=== PATIENT | male | born 1940 | race Caucasian/White ===

== ENCOUNTER 2019-10-01 05:40 | Day surgery (SDC) | payer MEDICARE, BC ==
[~2019-10-01] VITALS: Ht 180.3 cm; Wt 85.3 kg
[~2019-10-01 05:40] MED LIST: ASPIRIN EC81 M1 PO; FEXOFENADINE H180 MG PO; NORVASC5 MG PO; PRAVACHOL40 MG PO; PROAIR HFA8.5 G1 INH
[2019-10-01 06:17] LABS: HEMATOCRIT 43.6 % (42.0-54.0); HEMOGLOBIN 14.9 g/dL (13.5-17.5); MCH 31.2 pg (26.0-34.0); MCHC 34.2 g/dL (31.0-37.0); MCV 91.4 fL (80.0-100.0); MEAN PLATELET VOLUME 10.5 fL (7.4-10.4); RBC 4.77 10x6/uL (4.20-6.10); RDW 13.8 % (11.5-14.5); WBC 7.3 10x3/uL (4.8-10.8)
[2019-10-01 07:18] VITALS: Ht 180.3 cm; Wt 85.3 kg
--- NOTE | 2019-10-01 15:20 | OP ---
PATIENT NAME: TRENT CASTRO MEDICAL RECORD: [id number] LOCATION:[facility] ADMISSION DATE: SURGEON: ISAEL HALL MD DATE OF OPERATION: 10/01/2019 SURGEON: Isael Hall MD ANESTHESIA: TIVA by Velma Lozada CRNA. DIAGNOSIS: Elevated PSA of 5.22 on 07/22/2019, bladder outlet obstruction. PROCEDURE: Cystoscopy, transrectal ultrasound and prostate biopsy. FINDINGS: On cystoscopy, bladder neck obstruction, nonobstructive lateral lobes of the prostate. Single ureteral orifices with no bladder tumors. Transrectal ultrasound shows a 68 gram prostate with intraprostatic stones. SPECIMENS: Prostate biopsy cores. BLOOD LOSS: Minimal. CLINICAL HISTORY: This is a 79-year-old male with an elevated PSA of 5.22. Back in 2005, his psa was greater than [address] Faith biopsied the prostate. The biopsy, however, consisted of only 1 core from each side. This, I suspect is an inadequate biopsy sampling. He has a positive family history of prostate cancer as his father of prostate cancer. He has a weaker urine flow as his voiding symptoms. HE IS ALLERGIC TO VOLTAREN, MILK, AND CELEBREX. He was given ampicillin and sulbactam transportation security officer to the OR. DESCRIPTION OF PROCEDURE: The patient was given IV sedation. He was placed into lithotomy position. He was prepped and draped. A 17-Fijian cystoscope with 30-degree lens was used for visualization. Cystoscopic findings are as outlined above. The bladder was then emptied through the cystoscope sheath and the scope was removed. A transrectal ultrasound probe was then introduced. Prostate size measurements were obtained. I obtained the prostate size was 68 grams. Sextant biopsies were obtained with at least 3 cores from each sextant. Once all the specimens were obtained, the procedure was terminated. I will see the patient in followup next week to review the pathology with him. TRANSINT:[id number] Voice Confirmation ID: [id number] DOCUMENT ID: [id number] ISAEL HALL MD at 1520 CC: [id number] DICTATION DATE: 10/01/19 09 FIELD MECHANIC: 10/01/19 1440 REG [facility] [address] [place] [address]
--- NOTE | 2019-10-01 16:34 | NUR ---
1110 BLADDER SCAN BY Petrona DRUMMOND R.N. WITH RESULTS 138ML. Megan LOMBARDO R.N.
--- NOTE | 2019-10-01 16:39 | NUR ---
1328 DRESSED, AWAKE & ALERT. GIVEN DISCHARGE INSTRUCTIONS: MED REC, RTC APPT., POST CYSTOSCOPY & PROSTATE BIOPSY D/C INSTRUCTIONS. VOICED UNDERSTANDING. TO PRIVATE CAR PER WHEELCHAIR BY STAFF. HOME WITH MRS. CASTRO. Megan LOMBARDO R.N.
== END 2019-10-01 13:28 | disposition home or self-care (01) ==
LOC: D.OPS 05:40 → D.PAN 08:00 → D.OPS 13:28
PROVIDERS: Anesthesiology; ATTEND Urology
DX: R97.20 Elevated prostate specific antigen [PSA] (principal); N32.0 Bladder-neck obstruction; I10 Essential (primary) hypertension